=== PATIENT | female | born 1985 | race Caucasian/White ===

== ENCOUNTER 2020-08-28 16:04 | Outpatient (REF) | payer OTHER, SELFPAY ==
[2020-08-29 11:18] LABS: SARS COV2 PCR INHOUSE NEGATIVE (Negative)
== END 2020-08-28 16:05 | disposition home or self-care (01) ==
LOC: HO.LAB 16:04
PROVIDERS: Visit Provider Internal Medicine
DX: Z20.822 Contact with and (suspected) exposure to COVID-19 (principal)
CPT/HCPCS: C9803; U0003